=== PATIENT | female | born 1975 | race Caucasian/White ===

== ENCOUNTER 2016-10-11 19:57 | Emergency (ER) | payer SELFPAY ==
[~2016-10-11] VITALS: Ht 170.2 cm; Wt 60.0 kg
[2016-10-11 20:02] VITALS: BP 124/82
== END 2016-10-11 22:14 | disposition home or self-care (01) ==
LOC: ED 22:00
DX: S00.03XA Contusion of scalp, initial encounter (principal); S80.211A Abrasion, right knee, initial encounter; Y04.8XXA Assault by other bodily force, initial encounter; Y93.89 Activity, other specified; Y92.89 Other specified places as the place of occurrence of the external cause; Y99.8 Other external cause status
CPT/HCPCS: 70450; 72125; 99284

== ENCOUNTER 2016-11-03 14:31 | Emergency (ER) | payer OTHER ==
[~2016-11-03] VITALS: Ht 170.2 cm; Wt 69.5 kg
[2016-11-03 14:37] VITALS: BP 116/81
[2016-11-03] MEDS ORDERED: FAMOTIDINE 20 MG TABLET PO ONE (15:30)
[2016-11-03] MEDS ORDERED: IBUPROFEN 200 MG TABLET PO ONE (15:30)
[2016-11-03] MEDS ORDERED: IBUPROFEN 200 MG TABLET ONE (15:33)
[2016-11-03] MEDS ORDERED: FAMOTIDINE 20 MG TABLET ONE (15:34)
== END 2016-11-03 16:29 | disposition home or self-care (01) ==
LOC: ED 15:14
DX: B86 Scabies (principal); Z59.0 Homelessness
CPT/HCPCS: 99284; Q0177